=== PATIENT | female | born 1995 | race Caucasian/White ===

== ENCOUNTER 2022-03-19 17:33 | Emergency (ER) | payer MEDICAID ==
[~2022-03-19] VITALS: Ht 157.5 cm; Wt 86.2 kg
[~2022-03-19 17:33] MED LIST: PREN-115 PO
--- NOTE | 2022-03-19 17:51 | ED Chest Pain ---
General Chief Complaint: Chest Pain Stated Complaint: STUFFY NOSE | BODY PAINS Source: patient Exam Limitations: no limitations History of Present Illness Date Seen by Provider: Mar 19, 2022 Time Seen by Provider: 17:40 Initial Comments Patient is a 27-year-old female who presents to the emergency department today with a chief complaint of nonspecific chest discomfort located under the right breast, left chest and her shoulder blade. She has had this pain for about 4 to 5 days. She has intermittently taken Tylenol, her last dose was 2 tablets at about 130 this afternoon. She has been very worried about her discomfort. It is not brought on by exertion she has no associated symptoms of shortness of breath, nausea or diaphoresis. She is not a smoker. Takes no daily medications. Her last menstrual cycle was February 22. She is not sexually active. She is not on control. No recent travel, prolonged immobility, personal or family history of blood clot. No family history of early coronary artery disease. She currently rates her pain at a "2" and at its worst a "4". The patient states "it all started with [employer]." She read a story about young people dying of cardiac arrest in [place] and she states "it went downhill from there". She is very anxious and states that she believes her pain is related to anxiety. She has never had pain like this before. No headache, acute vision changes, speech difficulties, unilateral weakness numbness or tingling. Timing/Duration: 4-5 days Severity/Quality: mild, other ("pain") Location: central, other (under right breast, left shoulder area) Activities at Onset: none Prior CP/Workup: no prior chest pain, no prior cardiac workup ASA po MOLDER PIPE COVERING: No NTG SL MOLDER PIPE COVERING: No Allergies and Home Medications Allergies Coded Allergies: Penicillins (Verified Allergy, Mild, RASH, 12/09/12) Patient Home Medication List Home Medication List Reviewed: Yes Vit #108/Iron/Fa ( One Tablet) 1 Each Tablet, 1 EACH PO DAILY, (Reported) Entered as Reported by: ANASTASIA MCKEON on 12/10/12 0546 Review of Systems Review of Systems Constitutional: see HPI EENTM: Nose Congestion (mild) Respiratory: No Symptoms Reported Cardiovascular: Chest Pain Gastrointestinal: No Symptoms Reported Genitourinary: No Symptoms Reported Musculoskeletal: no symptoms reported Skin: no symptoms reported Psychiatric/Neurological: Anxiety Endocrine: No Symptoms Reported Past Opvoasy-Evihqu-Scjuwj Hx Immunizations Up To Date Tetanus Booster (TDap): Less than 5yrs PED Vaccines UTD: Yes Past Medical History Reproductive Disorders: No Physical Exam Vital Signs Vital Signs - First Documented 03/19/22 17:39 Temp 36.1 Pulse 99 Resp 19 B/P (MAP) 141/92 (108) O2 Delivery Room Air Capillary Refill : Height, Weight, BMI Height: 5'2.00" Weight: 158lbs. oz. 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 No risk factors for coronary artery disease personally or in her family history. Evaluation today includes a physical exam, EKG and single view chest x-ray. Differential diagnosis based on history, physical exam and studies includes acute coronary syndrome, aortic dissection, pneumonia, pleuritic chest pain, nonspecific musculoskeletal chest wall pain, anxiety. Based on history and physical exam as well as supportive studies no indication for acute, catastrophic pathology. Her EKG is reviewed and normal sinus rhythm without ST segment change. Chest x-ray is reviewed and is unremarkable. Vital signs are stable, although she is slightly hypertensive. No concerning findings to warrant laboratory studies however they were considered. I discussed findings and plan of care with the patient she is quite anxious and was requesting lab evaluation. Due to the patient's lack of risk factors for a [place] significant cardiac pathology laboratory studies were not pursued. I reassured the patient. Provided education on symptomatic relief. Return precautions are discussed. All questions are sought and answered. Patient stable for discharge. Initial ECG Impression Date: Mar 19, 2022 Initial ECG Impression Time: 17:55 Initial ECG Rate: 81 Initial ECG Rhythm: Normal Sinus Initial ECG Intervals: Normal Initial ECG Impression: Normal Diagnostic Imaging Diagonstic Imaging: Xray Plain Films/CT/US/NM/MRI: chest Comments Chest xray - interpreted by me - No acute findings; normal mediastinum; normal vascular structures; normal pulmonary structures Departure Impression Primary Impression: Chest pain Qualified Codes: R07.9 - Chest pain, unspecified Additional Impression: Anxiety about health Disposition: 01 HOME, SELF-CARE Condition: Improved Departure-Patient Inst. Decision time for Depature: 18:15 Referrals: [facility] (PCP/Family) Primary Care Physician Patient Instructions: Chest Pain That Is Not Caused by the Heart (DC), Anxiety, Adult ED Add. Discharge Instructions: You can take over the counter Ibuprofen 3 pills which is 600mg, every 6 hours as needed for pain. Always take ibuprofen with food. If you develop worsening chest pain, especially with fever, cough, shortness of breath or any other emergent, concerning symptoms - please return to the emergency department for re-evaluation. Follow up with your primary care doctor for further evaluation and management of your blood pressure - it was slightly elevated today. Copy Copies To 1: OZIEL ALEXANDER KATHRYN M MD Mar 19, 2022 17:51
[2022-03-19] MEDS ORDERED: IBUPROFEN 600 MG (MOTRIN) TAB PO ONE (18:15)
--- NOTE | 2022-03-19 18:22 | Diagnostic Imaging Report ---
INDICATION: Chest pain for 5 days. EXAMINATION: Chest 03/19/2022 FINDINGS: The cardiomediastinal silhouette is unremarkable. The pulmonary vasculature is within normal limits. The lungs and pleural spaces are clear. IMPRESSION: No evidence of an acute cardiopulmonary process. Dictated by: Dictated on workstation # [id number]
[2022-03-19 18:30] VITALS: BP 134/76
== END 2022-03-19 18:30 | disposition home or self-care (01) ==
LOC: EDUNIT# 17:33 → ER 17:36
DX: R07.89 Other chest pain (principal); F06.4 Anxiety disorder due to known physiological condition
CPT/HCPCS: 71045; 93005